=== PATIENT | male | born 1995 | race African-American/Black ===

== ENCOUNTER 2019-01-30 16:14 | Emergency (ER) | payer MEDICAID ==
[~2019-01-30] VITALS: Ht 182.9 cm; Wt 88.2 kg
[~2019-01-30 16:14] MED LIST: CONGENTIN; DIVA-18 PO; RISP2 PO
[2019-01-30 16:33] VITALS: BP 128/76
[2019-01-30] MEDS ORDERED: AZITHROMYCIN 500 MG TABLET PO STA (16:52)
[2019-01-30] MEDS ORDERED: LIDOCAINE HCL 1% 20ML VIAL (Pyxis) INJ INFIL ONE (17:00)
[2019-01-30] MEDS ORDERED: CEFTRIAXONE SODIUM 250 MG/VIAL IM ONE (17:00)
== END 2019-01-30 17:08 | disposition home or self-care (01) ==
LOC: ER 16:14
DX: N34.2 Other urethritis (principal)
CPT/HCPCS: 96372; 99283; J0696

== ENCOUNTER 2019-05-10 11:52 | Emergency (ER) | payer MEDICAID ==
[~2019-05-10] VITALS: Ht 180.3 cm; Wt 82.0 kg
[2019-05-10] MEDS ORDERED: AZITHROMYCIN 500 MG TABLET PO ONE (14:45)
[2019-05-10] MEDS ORDERED: LIDOCAINE HCL 1% 20ML VIAL (Pyxis) INJ INFIL ONE (14:45)
[2019-05-10] MEDS ORDERED: CEFTRIAXONE SODIUM 250 MG/VIAL IM ONE (14:45)
[2019-05-10 15:43] VITALS: BP 132/76
[2019-05-13 08:11] LABS: CHLAMYDIA TRACHOMATIS NAA Negative (Negative); NEISSERIA GONORRHOEAE NAA Negative (Negative)
== END 2019-05-10 14:55 | disposition home or self-care (01) ==
LOC: ER 11:58
DX: A57 Chancroid (principal); A64 Unspecified sexually transmitted disease
CPT/HCPCS: 87491; 87591; 96372; 99283; J0696; J3490

== ENCOUNTER 2019-05-19 06:11 | Emergency (ER) | payer MEDICAID ==
[~2019-05-19] VITALS: Ht 180.3 cm; Wt 75.0 kg
[2019-05-19 06:34] VITALS: BP 125/64
== END 2019-05-19 10:00 | disposition home or self-care (01) ==
LOC: ER 06:11
DX: A60.01 Herpesviral infection of penis (principal); F31.9 Bipolar disorder, unspecified; F98.8 Other specified behavioral and emotional disorders with onset usually occurring in childhood and adolescence
CPT/HCPCS: 99283

== ENCOUNTER 2019-06-12 14:19 | Emergency (ER) | payer MEDICAID ==
[~2019-06-12] VITALS: Ht 182.9 cm; Wt 75.0 kg
[2019-06-12 18:29] VITALS: BP 119/55
== END 2019-06-12 18:30 | disposition home or self-care (01) ==
LOC: ER 14:19
DX: A60.00 Herpesviral infection of urogenital system, unspecified (principal); R56.9 Unspecified convulsions; F32.9 Major depressive disorder, single episode, unspecified
CPT/HCPCS: 99283

== ENCOUNTER 2020-01-04 20:23 | Emergency (ER) | payer MEDICAID ==
[~2020-01-04] VITALS: Ht 180.3 cm; Wt 69.0 kg
[2020-01-04 20:56] VITALS: BP 127/53
[2020-01-05] MEDS ORDERED: CEFTRIAXONE SODIUM 250 MG/VIAL IM ONE (00:15)
[2020-01-05] MEDS ORDERED: LIDOCAINE HCL/PF 1% 10 MG/ML 5ML VIAL IJ ONE (00:15)
[2020-01-05] MEDS ORDERED: AZITHROMYCIN 500 MG TABLET PO ONE (00:15)
== END 2020-01-05 01:48 | disposition home or self-care (01) ==
LOC: ER 20:33
DX: A60.01 Herpesviral infection of penis (principal)
CPT/HCPCS: 96372; 99283; J0696; J3490